=== PATIENT | male | born 1985 | race Caucasian/White ===

== ENCOUNTER 2022-04-06 10:16 | Emergency (ER) | payer BC ==
[2022-04-06] MEDS ORDERED: Sodium Chloride 0.9% 10 ML Syringe FLUSH PRN (14:43)
[2022-04-06 15:42] LABS: ESTIMATED GFR 99 mL/min (>60)
== END 2022-04-06 16:43 | disposition home or self-care (01) ==
LOC: JD.ED 10:16
DX: R53.83 Other fatigue (principal); F17.210 Nicotine dependence, cigarettes, uncomplicated; Z20.822 Contact with and (suspected) exposure to COVID-19
CPT/HCPCS: 36415; 70450; 70450-26; 71045; 71045-26; 80053; 81001; 83735; 84443; 84484; 85025; 85379; 86140; 93005; 99284; U0002

== ENCOUNTER 2023-12-14 20:31 | Emergency (ER) | payer BC | END 2023-12-14 22:04 | disposition home or self-care (01) | LOC: JD.ED 20:31 | DX: H53.8 Other visual disturbances (principal); F17.210 Nicotine dependence, cigarettes, uncomplicated | CPT/HCPCS: 70450; 70450-26; 99284 ==